=== PATIENT | female | born 1975 ===

== ENCOUNTER 2022-01-19 05:48 | Day surgery (SDC) | payer BC ==
[~2022-01-19] VITALS: Ht 162.6 cm; Wt 90.0 kg
[2022-01-19] MEDS ORDERED: MORPHINE SULFATE 2 MG/ML INJ. IVP PRN (06:00)
[2022-01-19] MEDS ORDERED: fentaNYL PF VIAL 100 MCG/2 ML VIAL IVP PRN ×2 (06:00)
[2022-01-19] MEDS ORDERED: IV RINGERS,LACTATED 1000ML 1,000 ML IV SCH (06:00)
[2022-01-19] MEDS ORDERED: HYDROmorphone 2 MG/ML INJ. IVP PRN (06:00)
[2022-01-19] MEDS ORDERED: PROCHLORPERAZINE 10 MG/2 ML VIAL. IVP PRN (06:00)
[2022-01-19 06:21] VITALS: BP 147/66
[2022-01-19] MEDS ORDERED: SCOPOLAMINE 1.5MG PATCH. TD ONE (06:26)
[2022-01-19] MEDS ORDERED: LIDOCAINE 2% PF 5 ML VIAL. ONE (06:53)
[2022-01-19] MEDS ORDERED: ONDANSETRON PF 4 MG/2 ML VIAL. ONE (06:53)
[2022-01-19] MEDS ORDERED: DEXAMETHASONE SOD PHOS 4 MG/ML VIAL ONE (06:53)
[2022-01-19] MEDS ORDERED: PROPOFOL 10 MG/ML (20ML) VIAL. IV ONE (06:53)
[2022-01-19] MEDS ORDERED: KETOROLAC 30 MG/ML VIAL. ONE (06:53)
[2022-01-19] MEDS ORDERED: FAMOTIDINE 20 MG/2 ML VIAL ONE (06:53)
[2022-01-19] MEDS ORDERED: fentaNYL PF VIAL 100 MCG/2 ML VIAL ONE (06:54)
[2022-01-19] MEDS ORDERED: TRIAMCINOLONE ACET/PF OPHTH 40 MG/ML VIAL. IO ONE (07:03)
[2022-01-19] MEDS ORDERED: BUPIVACAINE MPF 0.5% 30 ML VIAL. ONE (07:04)
--- NOTE | 2022-01-19 07:24 | PDOC1 ---
History and Physical Date of Service: DOS: DATE: 01/19/22 TIME: 07:20 Chief Complaint: Chief Complain: foot pain History of Present Illness: HPI: Patient is a 46yo F here today for L ganglion cyst removal. No comlaints when seen. Denies any past medical history or daily meds. Has been NPO since midnight Past Medical/Surgical History: PMH/PSH: None reported Allergies: Allergies: Coded Allergies: No Known Drug Allergies (Unverified , 01/19/22) Family History: Family History: Noncontributory Social History: Social History: No alcohol tobacco drug use Current Medications: Current Medications Current Medications Fentanyl Citrate (Fentanyl 2ml Vial) 25 mcg PRN Q5MIN PRN IVP MILD PAIN 1-3; Start 01/19/22 at 06:00; Stop 01/20/22 at 05:59 Fentanyl Citrate (Fentanyl 2ml Vial) 50 mcg PRN Q5MIN PRN IVP MODERATE PAIN 4- 6; Start 01/19/22 at 06:00; Stop 01/20/22 at 05:59 Morphine Sulfate (Morphine Sulfate) 1 mg PRN Q10MIN PRN IVP SEVERE PAIN 7-10; Start 01/19/22 at 06:00; Stop 01/20/22 at 05:59 Ringer's Solution 1,000 ml @ 30 mls/hr Q24H IV Last administered on 01/19/22at 06:23; Start 01/19/22 at 06:00; Stop 01/19/22 at 17:59 Hydromorphone HCl (Dilaudid) 0.5 mg PRN Q10MIN PRN IVP SEVERE PAIN 7-10, 2nd CHOICE; Start 01/19/22 at 06:00; Stop 01/20/22 at 05:59 Prochlorperazine Edisylate (Compazine) 5 mg PACU PRN PRN IVP NAUSEA, MRX1; Start 01/19/22 at 06:00; Stop 01/20/22 at 05:59 Cefazolin Sodium/ Dextrose 50 ml @ 100 mls/hr 1X PREOP PRN IV PRIOR TO PROCEDURE; Start 01/19/22 at 06:00; Stop 01/19/22 at 18:00 Scopolamine (Transderm-Scop) 1 patch ONCE ONCE TD Last administered on 01/19/22at 06:33; Start 01/19/22 at 06:26; Stop 01/19/22 at 06:27; Status DC Propofol (Diprivan) 200 mg STK-MED ONCE IV ; Start 01/19/22 at 06:53; Stop 01/19/22 at 06:53; Status DC Lidocaine HCl (Lidocaine Pf 2% Vial) 5 ml STK-MED ONCE .ROUTE ; Start 01/19/22 at 06:53; Stop 01/19/22 at 06:53; Status DC Ketorolac Tromethamine (Toradol 30mg Vial) 30 mg STK-MED ONCE .ROUTE ; Start 01/19/22 at 06:53; Stop 01/19/22 at 06:53; Status DC Ondansetron HCl (Zofran) 4 mg STK-MED ONCE .ROUTE ; Start 01/19/22 at 06:53; Stop 01/19/22 at 06:53; Status DC Famotidine (Pepcid Vial) 20 mg STK-MED ONCE .ROUTE ; Start 01/19/22 at 06:53; Stop 01/19/22 at 06:53; Status DC Dexamethasone Sodium Phosphate (Decadron) 4 mg STK-MED ONCE .ROUTE ; Start 01/19/22 at 06:53; Stop 01/19/22 at 06:54; Status DC Fentanyl Citrate (Fentanyl 2ml Vial) 100 mcg STK-MED ONCE .ROUTE ; Start 01/19/22 at 06:54; Stop 01/19/22 at 06:54; Status DC Triamcinolone Acetonide (Triesence 40 Mg/ ml Vial) 40 mg STK-MED ONCE IO ; Start 01/19/22 at 07:03; Stop 01/19/22 at 07:04; Status DC Bupivacaine HCl (Sensorcaine Mpf 0.5%) 30 ml STK-MED ONCE .ROUTE ; Start 01/19/22 at 07:04; Stop 01/19/22 at 07:04; Status DC Active Scripts Active Reported No Known Medications Prior To Admisstion (Info) Each 1 Each 1X ROS: Review of Systems Review of System REVIEW OF SYSTEMS: GENERAL: Denies weakness SKIN: No bruising, hair changes or rashes. EYES: No blurred, double or loss of vision. NOSE AND THROAT: No history of nosebleeds, hoarseness or sore throat. HEART: No history of palpitations, chest pain or shortness of breath on exertion. LUNGS: Denies cough, hemoptysis, wheezing or shortness of breath. GASTROINTESTINAL: Denies changes in appetite, nausea, vomiting, diarrhea or constipation. GENITOURINARY: No history of frequency, urgency, hesitancy or nocturia. NEUROLOGIC: Denies history of numbness, tingling, or tremor. PSYCHIATRIC: No history of panic, anxiety or depression. ENDOCRINE: No history of heat or cold intolerance, polyuria or polydipsia. EXTREMITIES: Denies joint pain, pain on walking or stiffness. Physical Exam: Vital Signs: Vital Signs Date Time Temp Pulse Resp B/P (MAP) Pulse Ox O2 Delivery O2 Flow Rate FiO2 01/19/22 06:21 98.1 72 20 100 98.1 01/19/22 06:17 147/66 Room Air Physcial Exam: GEN: No apparent distress. Alert and oriented HEENT: Normal cephalic, atraumatic, external auditory canals are patent EYES: Extraocular muscles are intact, pupil are equally round and reactive to light and accommodation MUSCULOSKELETAL: Well developed , well nourished, good range of motion ENDOCRINE: No thyromegaly was palpated LYMPHATICS: No cervical chain or axillary nodes were noted HEMATOPOIETIC: No bruising NECK: Supple, no JVD, no thyromegaly was noted LUNGS: Clear to auscultation in all lung valladares without rhonchi or wheezing HEART: RRR, S!, S2 present. Peripheral pulses intact, no obvious murmurs noted ABDOMEN: Soft, nontender. Positive bowel sounds, no organomegaly, normal bowel sounds EXTREMITIES: Without clubbing, cyanosis, or edema. Pedal pulses intact. Negative Homans sign NEUROLOGIC: Normal speech and tone. A&O x 3, moves all extremities, no ob vious focal deficits PSYCHIATRIC: Normal affect, normal mood. Stable SKIN: No ulcerations or rashes, good skin turgor, no jaundice VASCULAR: Good capillary refill, neurovascular bundle appears to be intact Labs: Labs: Laboratory Tests Test 01/19/22 06:12 Bedside Urine HCG, Qualitative Hcg negative (Negative) Laboratory Tests Test 01/19/22 06:12 Bedside Urine HCG, Qualitative Hcg negative (Negative) Assessment/Plan Assessment/Plan Left ganglion cyst removal Here today for surgery [facility] Dr Abdullahi. Ok to proceed from IM perspective. Dangelo 0 Justifications for Admission Other Justification KATERIN NEWMAN MD Jan 19, 2022 07:24
[2022-01-19] MEDS ORDERED: ceFAZolin 2GM PREMIX 2 GM/50 ML BAG IV ONE (08:00)
[2022-01-19] MEDS ORDERED: SEVOFLURANE 31 TO 60 MINUTES. IH ONE (08:10)
--- NOTE | 2022-01-19 08:21 | PDOC4 ---
OPERATIVE NOTE Date: Date: Jan 19, 2022 Pre-Op Diagnosis: Left foot soft tissue mass Post-Op Diagnosis: Same as above Procedure Performed: Left soft tissue mass excision Surgeon: Juan Rust DPM Anesthesia Type: General Blood Loss: 5 cc Specimans Obtained: Left foot soft tissue mass sent for pathology Findings: A well encapsulated soft tissue mass localized to the dorsal distal aspect of the PB tendon, left. There is no communicating branch or stock to the CC joint. The PB tendon is intact without any split tear or mucoid changes. Complications: None Operative Note: Under mild sedation, patient was brought into the operating room and placed on operating table in a supine position. A formal timeout confirming patient's identity, procedure, procedure site was carried out. Following IV prophylactic antibiotics, general anesthesia, a well-padded left calf tourniquet was placed on the left lower extremity. The left lower extremity was then scrubbed, prepped and draped using aseptic techniques. The left lower extremity was exsanguinated and then the tourniquet was inflated to 250 mill mercury. The attention was directed to the left midfoot near the CC joint. The soft tissue was palpated and a linear incision was made overlying the soft tissue mass following the skin tension line. The incision was carried deep with a combination of sharp and blunt dissection with care to protect and retract all the neurovascular bundles. After the incision of the retinaculum, the soft tissue mass was noted well encapsulated, derived from the PB tendon. The fluid in the soft tissue mass was found clear and viscous. No further communicating branch or stockimg was noted to the CC joint. The PB tendon was noted intact without any mucoid changes or split tear. The soft tissue mass was carefully dissected and removed from the surrounding soft tissue with care to preserve the PB tendon. The soft tissue mass was removed in toto and sent for pathology. The surgical site was irrigated with copious saline solution. Afterwards, no further residual soft tissue mass was noted. The dorsal PB tendon sheath was minimally cauterized with the a Bovie to prevent recurrence of the soft tissue mass. The surgical site was closed in layer with 4-0 Monocryl and 4-0 nylon. 10 cc of 0.25% Marcaine plain was infiltrated to the surgical site for postoperative anesthesia augmentation. Tourniquet was deflated and adequate digital perfusion was noted. The surgical site was dressed with Xeroform, gauze, Kerlix and Cortez compression. A surgical shoe was applied to the left lower extremity. Patient tolerated anesthesia and surgery well with vital signs stable and neurovascular status intact. Patient was then transferred to PACU for continuous recovery. JUAN RUST DPM Jan 19, 2022 08:21
[2022-01-19] MEDS ORDERED: oxyCODONE/APAP 5/325 1 TAB TABLET PO ONE (08:30)
[2022-01-19] MEDS ORDERED: GABAPENTIN 100 MG CAPSULE. PO ONE (08:30)
[2022-01-19] MEDS ORDERED: ACETAMINOPHEN 325 MG TABLET. PO ONE (08:30)
[2022-01-19] MEDS ORDERED: HYDR-2759 PO (08:42)
[2022-01-19] MEDS ORDERED: GABA-585 PO (08:43)
[2022-01-19 09:05] VITALS: BP 124/65
--- NOTE | 2022-01-21 17:07 | PATHOLOGY ---
[facility] Accession Number: [id number] . 01 Material submitted: . foot - LEFT FOOT SOFT TISSUE. Modifiers: left . 01 Clinical history: . GANGLION CYST OF LEFT FOOT LEFT FOOT TISSUE MASS EXCISION . 02 Diagnosis: Segment of dense fibroconnective tissue with focal attached fibroadipose and skeletal muscle tissue, left foot soft tissue mass excision: - Ganglion cyst. (JPM:michelle; 01/21/2022) QMS 01/21/2022 1630 Local . 02 Electronically signed: . Darek Sterling MD, Pathologist NPI- [id number] . 01 Gross description: . The specimen is received in formalin, labeled "Adelina Tyler, left soft tissue". The site is further designated on the requisition in the diagnosis field as "left foot". Received is a segment of pale shirley partially cystic tissue measuring 3.9 x 1.7 x 1.0 cm in greatest dimensions. Sectioning reveals a unilocular cystic structure measuring 1.5 cm filled with clear mucoid material. The specimen is submitted representatively in cassette A1. (CAA; 01/20/2022) QA/QA 01/20/2022 0907 Local . 02 Pathologist provided ICD-10: M67.472 . 02 CPT . 794521 Specimen Comment: A courtesy copy of this report has been sent to [phone], [phone] Specimen Comment: [id number] Specimen Comment: Report sent to / DR PEDERSEN Performed at: 01 [facility] [address], [place], [place] [id number] MD Rigo Luu MD Phone: [phone] Performed at: 02 [facility] [address] [place], [place] [id number] MD Darek Sterling MD Phone: [phone]
== END 2022-01-19 09:40 | disposition home or self-care (01) ==
LOC: SURG 05:48
PROVIDERS: ATTEND Podiatrist
DX: R22.42 Localized swelling, mass and lump, left lower limb (principal); M67.472 Ganglion, left ankle and foot; M19.90 Unspecified osteoarthritis, unspecified site; Z79.899 Other long term (current) drug therapy; Z98.890 Other specified postprocedural states
CPT/HCPCS: 28090; 81025; A4209; A4930; A6402; A6449; J0690; J1100; J1885; J2405; J2704; J3010; J3490; 88304; A4223; A6443; J3301